=== PATIENT | female | born 1955 ===

== ENCOUNTER 2020-07-13 14:18 | Outpatient (CLI) | payer MEDICAID ==
--- NOTE | 2020-07-13 17:00 | Consultation ---
DATE OF CONSULTATION: 07/13/2020 CONSULTING PHYSICIAN: George Kelsey MD CHIEF COMPLAINT: Chronic GERD, burping, possible need for screening colonoscopy. PAST MEDICAL HISTORY: 1. Hernia. 2. Hearing loss. PAST SURGICAL HISTORY: None. MEDICATIONS: None. FAMILY HISTORY: Mom of lung cancer. SOCIAL HISTORY: Patient denies any tobacco, alcohol, or drug use. She is single. ALLERGIES: To penicillin, , iodine. REVIEW OF SYSTEMS: Positive for severe GERD. PHYSICAL EXAMINATION: VITAL SIGNS: Temperature 97.4, blood pressure 117/65, respirations 20, pulse 65, height is 5 feet 3 inches, weight is 160. HEENT: Normocephalic and atraumatic. Sclerae anicteric. NECK: Supple. No evidence of obvious lymphadenopathy. CARDIOVASCULAR: Regular rate and rhythm. Plus S1 and S2. LUNGS: Clear to auscultation bilaterally. ABDOMEN: Positive bowel sounds. Soft. There is evidence of ventral hernia, nonreducible, but nontender. EXTREMITIES: No cyanosis. No clubbing. No edema. ASSESSMENT AND PLAN: This is a 64-year-old female with chronic burping and GERD. 1. Screening colonoscopy needs. 2. Ventral hernia. RECOMMENDATION: The patient needs an endoscopy and colonoscopy. Risks and benefits of procedure were explained to her. We are going to try to get authorization and schedule for both. Patient also given prescription for Align for gas and prescription for omeprazole for acid reflux. George Kelsey M.D. DR: KAUSHIK JOB#: [id number] CC:
== END 2020-07-13 16:18 | disposition home or self-care (01) ==
LOC: PAN 14:18
DX: K21.9 Gastro-esophageal reflux disease without esophagitis (principal); Z80.1 Family history of malignant neoplasm of trachea, bronchus and lung; Z88.0 Allergy status to penicillin; Z91.041 Radiographic dye allergy status; K43.9 Ventral hernia without obstruction or gangrene
CPT/HCPCS: G0463